=== PATIENT | female | born 1990 | race Caucasian/White ===

== ENCOUNTER → 2018-02-11 | Outpatient (CLI) | payer OTHER ==
--- NOTE | 2018-02-11 11:00 | WOMENS IMAGING REPORT ---
EXAM DESCRIPTION: TRANSVAGINAL ULTRASOUND COMPLETED DATE/TIME: 02/11/2018 10:35 am REASON FOR STUDY: DYSPAREUNIA I88.1 CHRONIC LYMPHADENITIS, EXCEPT MESENTERIC COMPARISON: None. TECHNIQUE: Dynamic and static grayscale images acquired of the pelvis via transvaginal approach and recorded on PACS. Additional selected color Doppler and spectral images recorded. LIMITATIONS: None. FINDINGS: UTERUS: Contour normal. No mass. ENDOMETRIAL STRIPE: No focal or generalized thickening. No masses. CERVIX: A small subcentimeter Nabothian cyst. RIGHT OVARY AND DOPPLER: Normal size. Small subcentimeter ovarian follicles. Normal arterial vascul ar flow without evidence for torsion. LEFT OVARY AND DOPPLER: Normal size. Small subcentimeter ovarian follicles. Normal arterial vascula r flow without evidence for torsion. FREE FLUID: None noted. OTHER: No other significant finding. MEASUREMENTS: UTERUS: 8.1 x 3.2 x 4.7 cm ENDOMETRIAL STRIPE: 5 mm RIGHT OVARY: 3.8 x 3.1 x 3.4 cm LEFT OVARY: 3.5 x 2.6 x 2.7 cm IMPRESSION: 1 Very small subcentimeter Nabothian cyst in the cervix. 2. Examination is otherwise unremarkable sonographically. TECHNICAL DOCUMENTATION: JOB ID: [id number] [employer]- All Rights Reserved Rev-01/25 Reading location - IP/workstation name: [email or web address]
--- NOTE | 2018-02-11 11:02 | WOMENS IMAGING REPORT ---
EXAM DESCRIPTION: U/S THYROID/ST TIS HEAD NECK COMPLETED DATE/TIME: 02/11/2018 10:35 am REASON FOR STUDY: LYMPHADENITIS I88.1 CHRONIC LYMPHADENITIS, EXCEPT MESENTERIC COMPARISON: None. TECHNIQUE: Dynamic and static cuellar-scale images acquired of the thyroid gland. Selected additional c olor/power Doppler images recorded. All images stored to PACS. LIMITATIONS: None. FINDINGS: RIGHT LOBE: The right lobe of the thyroid gland measures 3.4 x 1.2 x 1.2 cm, normal size. Homogeneous echotexture. No cystic or solid masses. LEFT LOBE: The left lobe of the thyroid gland measures 3.8 x 1.0 x 1.2 cm, normal size. Homogeneous echotexture. No cystic or solid masses. ISTHMUS: The isthmus measures 2.5 mm in AP diameter, normal size. Homogeneous echotexture. No cyst ic or solid masses. OTHER: A 1.2 x 0.6 x 1.8 cm lymph node in the upper right neck with a hilus of fat may be on a react ernst basis. This is in the region of the clinically palpable mass. IMPRESSION: 1 NORMAL THYROID ULTRASOUND. 2. A lymph node is identified in the region of the palpable mass in the upper right neck which conta ins a hilus of fat, may be on a reactive basis. Correlation is suggested and further evaluation with CT neck if clinically indicated. TECHNICAL DOCUMENTATION: JOB ID: [id number] [employer]- All Rights Reserved Reading location - IP/workstation name: [email or web address]
== END ==
LOC: WI 09:11
PROVIDERS: ATTEND Physician Assistant
DX: I88.1 Chronic lymphadenitis, except mesenteric (principal); N94.10 Unspecified dyspareunia; N88.8 Other specified noninflammatory disorders of cervix uteri
CPT/HCPCS: 76536; 76830